=== PATIENT | male | born 1995 | race Caucasian/White ===

== ENCOUNTER 2017-09-01 23:34 | Emergency (ER) | payer SELFPAY ==
[~2017-09-01] VITALS: Ht 185.4 cm; Wt 127.7 kg
[2017-09-01 23:39] VITALS: BP 155/90; TEMP 98
[2017-09-02] MEDS ORDERED: BACTRIM DS 8001 TAB PO (00:03)
[2017-09-02 00:20] VITALS: PULSE 67
== END 2017-09-02 00:20 | disposition home or self-care (01) ==
LOC: COL.ER 23:34
DX: L60.0 Ingrowing nail (principal); L03.031 Cellulitis of right toe

== ENCOUNTER → 2021-03-02 | Outpatient (CLI) | payer BC ==
[~2021-03-02] MED LIST: BACTRIM DS 8001 TAB PO
== END ==
LOC: COL.RAD 06:52
DX: K76.0 Fatty (change of) liver, not elsewhere classified (principal); K80.80 Other cholelithiasis without obstruction